=== PATIENT | male | born 1950 | race Caucasian/White ===

== ENCOUNTER 2020-08-03 16:03 | Outpatient (REF) | payer BC, SELFPAY | END 2020-08-03 16:04 | disposition home or self-care (01) | LOC: HO.LNP 16:03 | PROVIDERS: Visit Provider Internal Medicine | DX: Z20.822 Contact with and (suspected) exposure to COVID-19 (principal) | CPT/HCPCS: U0003 ==

== ENCOUNTER 2020-12-21 11:14 | Day surgery (SDC) | payer BC, SELFPAY ==
[2020-12-17 11:48] VITALS: BMI 27.9
--- NOTE | 2020-12-18 15:00 | HO.ANESPROP2 ---
Documented by User: Silvana Gonzales 12/18/20 15:01 HPI - Anesthesia Eval Consult details Narrative: 70yo M for Colonoscopy [facility] [place] Past Medical History Medical History (Updated 12/17/20 @ 11:47 by Yessi Luke) HTN (hypertension) Hyperlipidemia Kidney stones Surgical History Surgical History (Updated 12/17/20 @ 11:47 by Yessi Luke) Hx of colonoscopy Social History Social History Patient Tobacco Use Status: Never used Tobacco Second Hand Smoke Exposure: No Use of substances other than those prescribed or required for medical reasons: No Are you DNR?: No Advance Directives: No Advance Directives Information Provided: Yes Advance Directives on File: No Meds Allergies Allergy/AdvReac Type Severity Reaction Status Date / Time No Known Allergies Allergy Unverified 12/17/20 11:47 Home Medications Medication Instructions Recorded Confirmed Last Taken Type amlodipine 5 mg PO DAILY 12/17/20 12/17/20 Unknown History Exam Exam Date and Time: December 18, 2020 1500 Height,Weight and Vital Signs: Height 5 ft 8 in Weight 83.461 kg Assessment and Plan Assessment Anesthesia Assessment: Chart Reviewed Documented by User: Dorothy Vogel 12/21/20 12:34 [facility] [place] Past Medical History Medical History (Updated 12/17/20 @ 11:47 by Yessi Luke) HTN (hypertension) Hyperlipidemia Kidney stones Surgical History Surgical History (Updated 12/17/20 @ 11:47 by Yessi Luke) Hx of colonoscopy Social History Social History Patient Tobacco Use Status: Never used Tobacco Second Hand Smoke Exposure: No Use of substances other than those prescribed or required for medical reasons: No Are you DNR?: No Advance Directives: No Advance Directives Information Provided: Yes Advance Directives on File: No Meds Allergies Allergy/AdvReac Type Severity Reaction Status Date / Time No Known Allergies Allergy Unverified 12/17/20 11:47 Home Medications Medication Instructions Recorded Confirmed Last Taken Type amlodipine 5 mg PO DAILY 12/17/20 12/17/20 Unknown History Exam Airway Mallampati Class: II (Caps laterally) Heart: rrr Lungs: cta Assessment and Plan Assessment Anesthesia Assessment: Anesthesia Plan Discussed and Chart Reviewed Final Anesthetic Review NPO: Yes ASA Class: II Final Preanesthetic Review: No Changes in Pt Med Stat and Consent Obtained/Reviewed Patient Risk: Intermediate Procedure Risk: Intermediate Anesthetic Plan Anesthetic Plan: MAC: Disposition: Standard PACU
[2020-12-21 11:35] VITALS: BP 159/94; PULSE 91; RESP 18; TEMP 37.1; O2SAT 96
[2020-12-21] MEDS: Lactated Ringers 1,000 ML 100 ML IVCONT (11:42)
[2020-12-21 14:50] VITALS: BP 128/80; PULSE 60; RESP 18; TEMP 36.3; O2SAT 97
--- NOTE | 2020-12-21 14:57 | PM.OP ---
Brief Operative Note Date of Service: 12/21/20 Pre-op diagnosis: Screening Post-op diagnosis: other (Colon polyps, Diverticulosis) Procedure: Colonoscopy to the cecum and TI with biopsy and removal of polyps, and snare polypectomy. Placement of 6 Resolution clips along cold biopsy polypectomy sites in proximal ascending colon, opposite the Ileocecal valve. Surgeon: Beni Rivers Anesthesia: MAC Was an Gas Maker Helper used for this Procedure?: No Estimated blood loss (mL): 10.0 Pathology: other (A. Very proximal ascending colon polyps opposite the ICV B. Cecal polyp C. Ascending colon polyp just distal and opposite toto specimen A.) Condition: stable Disposition: PACU
[2020-12-21 15:05] VITALS: BP 149/80; PULSE 68; RESP 18; TEMP 36.2; O2SAT 99
--- NOTE | 2020-12-21 16:49 | OP_ITS ---
SURGEON: Beni Rivers MD INDICATIONS: The patient presents for colorectal cancer screening and personal history of tubular adenomas of the colon. Full consent has been obtained from him for this, including risks of bleeding and perforation. PREOPERATIVE DIAGNOSIS: POSTOPERATIVE DIAGNOSIS: PROCEDURE PERFORMED: Colonoscopy to the cecum and terminal ileum with biopsy and removal of polyps, snare polypectomy, and placement of resolution clips at the site of the proximal ascending colon polyps that were biopsied and removed opposite of the ileocecal valve. ESTIMATED BLOOD LOSS: COMPLICATIONS: ANESTHESIA: Monitored anesthesia care. ASSISTANTS: SPECIMENS: PREOPERATIVE DIAGNOSES: Colorectal cancer screening and personal history of tubular adenomas of the colon. POSTOPERATIVE DIAGNOSES: Colorectal cancer screening and personal history of tubular adenomas of the colon, colon polyps, diverticulosis, and small internal hemorrhoids. DESCRIPTION OF PROCEDURE: (See the below addendum as well) The patient was placed in the left lateral decubitus position. The digital rectal exam revealed no abnormalities. The [employer] video pediatric colonoscope was entered into the rectum and advanced easily to the cecum. Once in the cecum, I did identify a normal-appearing cecal pouch other than an approximately 3 or 4 mm polyp, which was biopsied and completely removed with cold biopsy forceps. The remainder of the cecum appeared normal. The terminal ileum was cannulated and appeared normal. The scope was withdrawn back in the colon. The scope was then slowly withdrawn assessing all mucosal surfaces carefully. Preparation was excellent. In the very proximal ascending colon, opposite of the ileocecal valve, were 2 flat polyps between 3 and 5 mm in diameter. These were both completely removed with cold biopsy forceps. Also in the proximal ascending colon, just distal to the polyps that were opposite of the ileocecal valve, was an approximately 12 mm flat, but raised adenomatous-appearing lesion. This was snared and cauterized in piecemeal fashion with at least 2 pieces recovered for pathology by suction. Postpolypectomy, there did not appear to be any definitive residual polyp tissue nor bleeding. I did not visualize any other polyps, colitis, nor angiodysplasia. There was a mild amount of sigmoid diverticulosis. In the rectum, the scope was retroflexed visualizing small internal hemorrhoids, but no other pathology. The rectal mucosa appeared normal. The scope was straightened and withdrawn from the patient. He tolerated the procedure well and was returned to recovery area in stable condition. IMPRESSION: 1. Colon polyps, status post snare polypectomy, and biopsy and removal of polyps. 2. Placement of 6 resolution clips on the cold biopsy polypectomy sites opposite the ileocecal valve with good hemostasis. 3. Diverticulosis. 4. Internal hemorrhoids. PLAN: The results of the pathology will be checked. I would recommend a repeat colonoscopy in 1 year for further surveillance. He was advised not to use any aspirin and NSAIDs for at least 1 week. ADDENDUM: Of note, at the site of the very proximal ascending colon polyps that were removed with cold biopsy, opposite the ileocecal valve, there was persistent oozing from the biopsy sites. Therefore, 6 resolution clips were placed along the line of the biopsy sites with ultimately good hemostasis and good deployment. The area was irrigated and observed without further bleeding. MD PAOLA Johnson/[place] / [id number] MTDD
== END 2020-12-21 15:45 | disposition home or self-care (01) ==
PROVIDERS: PCP Internal Medicine; Visit Provider Internal Medicine
PROC: 0DJD8ZZ Inspection of Lower Intestinal Tract, Via Natural or Artificial Opening Endoscopic (ICD-10-PCS; CPT 45378; principal; 2020-12-21 12:30)
DX: Z12.11 Encounter for screening for malignant neoplasm of colon (principal); Z86.010 Personal history of colon polyps; D12.0 Benign neoplasm of cecum; D12.2 Benign neoplasm of ascending colon; K57.30 Diverticulosis of large intestine without perforation or abscess without bleeding; K64.8 Other hemorrhoids; I10 Essential (primary) hypertension; Z79.899 Other long term (current) drug therapy
CPT/HCPCS: 45385; 45380; 88305